=== PATIENT | male | born 1955 | race Caucasian/White ===

== ENCOUNTER 2018-08-25 18:32 | Inpatient (IN) | payer OTHER ==
[~2018-08-25] VITALS: Ht 170.2 cm; Wt 93.0 kg
[~2018-08-25 18:32] MED LIST: ALLOPURINOL 10100 M1 PO; ASPIRIN325 PO; CARDIZEM CD180 MG PO; INDOMETHACIN 2525 MG PO; KEFLEX500 M1 PO; KLOR-CON 1010 MEQ PO; LASIX 20 MG TAB20 MG PO
[2018-08-25 18:42] VITALS: BP 175/89
[2018-08-25 19:09] LABS: ABSOLUTE LYMPHOCYTES 1.2 thou/uL (0.8-5.3); ABSOLUTE NEUTROPHILS 5.8 thou/uL (1.6-8.1); EOSINOPHILS 1.8 %; MPV 8.7 fl. (7.2-11.1); RDW-CV 13.6 % (10.5-14.5)
[2018-08-25 19:10] LABS: ABSOLUTE BASOPHILS 0.1 thou/uL (0.0-0.2); ABSOLUTE EOSINOPHILS 0.1 thou/uL (0.0-0.7); BASOPHILS 0.9 %; HEMATOCRIT 41.8 % (42.0-52.0); HEMOGLOBIN 14.1 gm/dL (14.0-18.0); LYMPHOCYTES 14.1 %; MCH 31.3 pg (26.0-34.0); MCHC 33.8 g/dL (28.0-37.0); MCV 92.7 fL (80.0-100.0); MONOCYTES 12.2 %; NUCLEATED RBCS 0 /100WBC; PLATELET COUNT* 286 thou/uL (150-400); RBC 4.51 mil/uL (4.50-6.00); WBC 8.2 thou/uL (4.0-11.0)
[2018-08-25 19:17] LABS: CALCIUM 8.7 mg/dL (8.5-10.1); CREATININE 1.5 mg/dL (0.6-1.3); POTASSIUM 3.5 mmol/L (3.5-5.1)
[2018-08-25 19:21] LABS: APTT 28.5 Seconds (25.0-31.3); PROTIME 10.1 Seconds (9.20-11.50)
[2018-08-25 19:22] LABS: ALBUMIN 3.7 g/dL (3.4-5.0); TOTAL BILIRUBIN 0.5 mg/dL (<0.1-1.0); TOTAL PROTEIN 8.8 g/dL (6.4-8.2)
[2018-08-25 21:51] VITALS: BP 138/72
[2018-08-25 23:07] VITALS: BP 159/83
--- NOTE | 2018-08-25 23:37 | NUR ---
ARRIVED TO ROOM 316 ALERT AND ORIENTED. ORIENTED TO ROOM AND BED CONTROLS. OPEN WOUNDS NOTED ON RIGHT LOWER LEG DRAINING SMALL AMOUNT OF SEROSANGUINEOUS DRAINAGE. HAS IV PAIN MEDICATION FOR PAIN. IV ANTIBIODICS CURRENTLY INFUSING. WILL CONTINUE TO MONITOR. CALL LIGHT WITHIN REACH.
--- NOTE | 2018-08-26 06:10 | NUR ---
RESTING QUIETLY IN BED ON HOURLY ROUNDS. RIGHT LEG SWOLLEN, RED AND HAS WOUNDS OPEN TO AIR DRAINING SEROSANGUINEOUS DRAINAGE. IV PAIN MEDICATION GIVEN X2 AND HELPFUL. CALL LIGHT WITHIN REACH.
[2018-08-26 10:00] VITALS: BP 127/69
--- NOTE | 2018-08-26 14:54 | NUR ---
WOUND NURSE: PATIENT SEEN FOR WOUND ASSESSMENT TO RLE. PATIENT WITH 3+ PITTING EDEMA, REDDENED, PAINFUL, AND WARM TO TOUCH. MULTIPLE SHALLOW LESIONS INVOLVING THE CIRCUMFERENCE OFTHE LEG AND MEASURING 39 X 18 X .2 CM. DRAINING LARGE AMOUNT OF DARK RED, OPAQUE DRAINAGE. PEDAL PULSES ARE 2+ AND CAPILLARY REFILL IS <3 SECONDS. SKIN IS PINK IN COLOR. CLEANSED WITH SOAP AND WATER, RINSE WITH WATER, THEN PAT DRY. APPLIED XEROFORM GAUZE UNDER ABDS TO WOUNDED AREA, THEN WRAPPED WITH MEDLINE 3 LAYER COMPRESSION WRAP. PATIENT INSTRUCTED ON MEASURES TO PROMOTE HEALING AND PREVENT FURTHER COMPLICATIONS. PLAN IS TO CHANGE DRESSING 3X/WEEK.
[2018-08-26 16:00] VITALS: BP 140/63
--- NOTE | 2018-08-26 16:08 | NUR ---
SW met with pt to complete initial assessment, introduce self, and SW role. Pt lives at home alone. Pt said that he understands that he needs wound care follow up and that he thinks he has someone who would be able to provide rides to wound care clinic. Pt says he does not need any other resources at this time. SW to continue to follow to assist with safe dc planning.
--- NOTE | 2018-08-26 18:32 | NUR ---
PT IS ALERT AND ORIENTED. PT IS ON RA. PT HAS 2+ PULSES ALL EXTREMITIES. 1+ PITTING EDEMA IN THE RIGHT LEG. WOUND CARE NURSE SAW PT AND CLEANED LEGS AND APPLIED XEROFORM UNDER ABD AND WRAPPED IN [address] ALVAREZ WAS ASKED FOR 2% LIDOCAINE CREAM TO PLACE ON LEGS BILAT FOR WOUND CARE. PT HAD ATERIAL DOPPLER ORDERED, RESULTS NEGATIVE. PT HAS REQUESTED FENTANYL EVERY 4 HOURS. CALL LIGHT IN REACH. BED ALARM ON. WILL CONTINUE TO MONITOR.
--- NOTE | 2018-08-26 18:36 | NUR ---
NURSING DOCUMENTATION BY DAVIS Beach RN REVIEWED
[2018-08-27] VITALS: BP 147/77
--- NOTE | 2018-08-27 06:19 | NUR ---
PATIENT SLEPT MOST OF THE NIGHT. IV FLUIDS AND ANTIBIOTICS WERE GIVEN ORDERED. PATIENT WAS GIVEN PAIN MEDICINE TWICE THIS SHIFT. WILL CONTINUE TO MONITOR.
--- NOTE | 2018-08-27 07:53 | CON ---
[address] [address] CONSULTATION Name: ELBERTLALIT Alexandra Room: [address] IN M.R.#: [id number] Admission: 08/25/18 Attend Phys: Reid Suarez MD Discharge: Date of : 59 Report #: [id number] THIS REPORT FOR: //name// CC: FAM physician/PCP Reid Suarez DATE OF SERVICE: 08/26/2018 Infectious Disease Consultation ATTENDING PHYSICIAN: Reid Suarez MD REASON FOR EVALUATION: Right lower extremity skin and soft tissue infection in the setting of an inflammatory eruption, likely has degree of venous insufficiency with dermatitis, perhaps lymphedema as well. HISTORY OF PRESENT ILLNESS: Chart reviewed, patient examined. The patient is a 62-year-old with history of venous insufficiency has ongoing issues with lower extremity edema, inflammatory rashes, he states at least 8 years. His utilizes compression to some extent and increasing pain associated with it. Noted weeping and clearly had significant fevers. Denies any pulmonary or gastrointestinal related complaints, seen through the emergency room, was given tentative diagnosis of cellulitis. He was admitted, placed empirically on antimicrobial therapy with vancomycin and was found not to have significant improvement over the course of the last 24 to 36 hours, is not encephalopathic. ALLERGIES: None. MEDICATIONS: Include vancomycin, fentanyl. PAST MEDICAL HISTORY: Otherwise unremarkable, as noted above, history of gout, new onset atrial fibrillation. SOCIAL HISTORY: Nonsmoker. Occasional ethanol. FAMILY HISTORY: Noncontributory. REVIEW OF SYSTEMS: As above. PHYSICAL EXAMINATION: GENERAL: He appears somewhat chronically ill, undernourished, is generally lucid, moderate distress. VITAL SIGNS: Temperature 97.9, pulse 68, respirations 20, blood pressure 127/69. SKIN: Warm, dry, no rashes. HEENT: [place] [address] CONSULTATION Name: LALIT BOSWELL Room: [address] IN [facility]#: [id number] Admission: 08/25/18 Attend Phys: Reid Suarez MD Discharge: Date of : 59 Report #: [id number] NECK: Supple. LUNGS: Diminished breath sounds. HEART: Regular. I do not appreciate any murmur. ABDOMEN: Obese, soft, nontender. EXTREMITIES: Lower extremities were examined. Venous insufficiency as noted by the dermopathy, does have adequate peripheral distal pulses. Left leg has marked inflammatory changes. There is evidence of weeping. It is quite tender. There is some debris and eschar superficial eschars noted as well. LABORATORY DATA AND X-RAY: Blood cultures are sterile thus far. Lactic acid 1.1. Electrolytes: Sodium 142, potassium 3.5, chloride 104, bicarbonate is 33, anion gap of 5, BUN and creatinine 22 and 1.5, glucose of 102. LFTs unremarkable. Albumin of 3.7, total protein 5.5. Estimated GFR of 48. PT of 10.1, INR 1.0. CBC: White count of 8.2, H and H 14.1 and 41.8, platelets of 286. ASSESSMENT: Right lower extremity inflammatory eruption. It is associated with superficial tissue breakdown with drainage. Discussed with the wound care nurse. Agree with compression. We will add additional coverage. There is quite a bit of an odor, may well be positive or perhaps mixed. Elevation. May at some point need debridement. We would hold off for the moment. We will evaluate on daily basis while here. <ELECTRONICALLY SIGNED> By: Von Houston MD 08/27/18 [id number] Houston MD /nt
[2018-08-27 08:55] VITALS: BP 152/89
[2018-08-27 15:43] VITALS: BP 155/75
[2018-08-27 16:51] VITALS: BP 153/83
--- NOTE | 2018-08-27 18:38 | NUR ---
PATIENT A&OX4, LETHARGIC, ROOM AIR, IV RIGHT AC FLUIDS INFUSSING. UP STAND BY ASSIST, STEADY GAIT. RIGHT LEG OPEN WOUND, ID CONSULT. 3 LAYER WRAP. BLOOD CULTURES REDRAWN THIS AM. FEVER THIS EVENING OF 101.8, TYLENOL GIVE, RELIEF WITH MEDICATION. NO OTHER CONCERNS AT THIS TIME. APPROPRIATE AND COOPORATIVE WITH CARE.
[2018-08-27 23:47] VITALS: BP 125/80
--- NOTE | 2018-08-28 06:28 | NUR ---
PATIENT SLEPT MOST OF THE NIGHT. IV FLUIDS AND ANTIBIOTICS WERE GIVEN ORDERED. PATIENT WAS GIVEN PAIN MEDICINE TWICE WITH SOME RELIEF. COMPRESSION WRAP REMAINS TO RIGHT LOWER LEG. WILL CONTINUE TO MONITOR.
[2018-08-28 07:45] VITALS: BP 136/77
[2018-08-28 16:00] VITALS: BP 156/85
--- NOTE | 2018-08-28 16:23 | NUR ---
WOUND NURSE: PATIENT SEEN TO READDRESS RLE WOUNDS. DRESSING HAD BEEN REMOVED PRIOR TO THIS NURSE ARRIVING TO SEE PATIENT. PATIENT WAS TAKEN TO SHOWER ROOM AND GIVEN A THOROUGH BATH AND WITH EMPHASIS OF CLEANSING WOUNDS WITH SOAP & WATER IN THE SHOWER. ALL WOUNDS PRESENT PARTIAL THICKNESS WOUNDS WITH RED, NONGRANULATING TISSUE IN THE BEDS AND FEW DARK RED THIN SCABS. THE LEG IS ALSO LESS EDEMATOUS AND DECREASED WARMTH. THERE IS A MODERATE TO LARGE AMOUNT OF SEROUSANGUINOUS DRAINAGE. APPLIED XEROFORM GAUZE UNDER ABD'S THEN WRAPPED WITH MEDLINE 3 LAYER COMPRESSION WRAP. THIS WAS TOLERATED WELL BY THE PATIENT. ALSO, RIGHT GREAT TOE FELL OFF WHILE DRESSING THE LEG. ALSO APPLIED LOTION TO INTACT SKIN TOES TO KNEE.
--- NOTE | 2018-08-28 17:51 | NUR ---
PATIENT GIVEN PRN FENTANYL X 2 FOR LEG PAIN. DRESSING TO RIGHT LEG CHANGED PER WOUND CARE. IVF AND SCHED ABX REMAIN. LOW GRADE TEMP 99.9 THIS AFTERNOON, PRN TYLENOL GIVEN. VOIDING LARGE AMOUNTS PER URINAL. UP TO SHOWER THIS EVENING WITH ASSISTANCE.
[2018-08-28 21:00] VITALS: BP 150/80
[2018-08-29 05:00] LABS: HEMATOCRIT 37.3 % (42.0-52.0); HEMOGLOBIN 12.4 gm/dL (14.0-18.0); MCH 30.6 pg (26.0-34.0); MCHC 33.4 g/dL (28.0-37.0); MCV 91.6 fL (80.0-100.0); MPV 9.1 fl. (7.2-11.1); RBC 4.07 mil/uL (4.50-6.00); RDW-CV 13.3 % (10.5-14.5); WBC 15.4 thou/uL (4.0-11.0)
[2018-08-29 08:50] VITALS: BP 143/80
[2018-08-29 12:30] VITALS: BP 127/79
[2018-08-29 16:30] VITALS: BP 152/87
--- NOTE | 2018-08-29 18:54 | NUR ---
PATIENT HAS BEEN A/O X 4 THIS SHIFT. MEDICATED FOR RIGHT LOWER LEG PAIN X 1 WITH EFFECT. PATIENT CONTINUES ON IV ANTIBIOTICS AND FLUIDS. UP WITH ASSIST TO BATHROOM THIS AFTERNOON. PATIENT'S RIGHT LOWER LEG REMAINS WRAPPED AND ELEVATED. PATIENT'S RIGHT HAND ELEVATED ON PILLOWS THIS SHIFT DUE TO SLIGHT SWELLING. PATIENT'S APPETITE FAIR. AFEBRILE THIS SHIFT. HOURLY ROUNDING COMPLETED. CALL LIGHT WITHIN REACH. WILL CONTINUE WITH PLAN OF CARE.
[2018-08-29 20:30] VITALS: BP 136/74
[2018-08-30] VITALS: BP 143/76
[2018-08-30 04:00] VITALS: BP 151/84
--- NOTE | 2018-08-30 06:12 | NUR ---
PT SLEPT ON AND OFF THIS SHIFT. ASSESSMENT DOCUMENTED. MEDS GIVEN PER E-JAN. PT REPORTED A HEADACHE, TYLENOL GIVEN WITH RELIEF. PATIENT ALSO STATED THAT HIS LEFT ELBOW IS HURTING, PAIN MEDS GIVEN PER E-JAN. PT STATES ELBOW PAIN IS FROM WHEN "LIZBETH DRAINED STAPH FROM MY ELBOW, BUT THEY DIDN'T DRAIN ENOUGH". LEFT ARM ELEVATED ON PILLOWS FOR RELIEF. IV PATENT, FLUIDS INFUSING. PT VOIDED PER URINAL. DRESSING ON RIGHT LEG C/D/I. WILL CONTINUE WITH PLAN OF CARE.
[2018-08-30 08:00] VITALS: BP 145/68
[2018-08-30] MEDS ORDERED: PHENERGAN 25 MG25 M1 PO (11:51)
[2018-08-30] MEDS ORDERED: OXYCODONE HCL 55 MG PO (11:51)
--- NOTE | 2018-08-30 14:10 | NUR ---
WOUND NURSE: PATIENT SEEN FOR REWRAP OF RIGHT LOWER EXTREMITY LEG AND DRESSING APPLICATION. STAFF NURSE REMOVED DRESSING AND CLEANSED LEG AND APPLIED LIDOCAINE GEL 2% PRIOR TO THIS NURSE ARRIVING. THIS NURSE APPLIED LOTION TO INTACT SKIN APPLIED XEROFORM GAUZE UNDER ABD, THEN APPLIED MEDLINE 3 LAYER COMPRESSION WRAP. THIS WAS TOLERATED WELL BY THE PATIENT. PATIENT WAS INSTRUCTED ON MEASURES TO CONTINUE TO PROMOTE HEALING AND PREVENT COMPLICATIONS. PATIENT WAS INSTRUCTED ON IMPORTANCE OF ESTABLISHING CARE WITHIN A CLINIC AND TO HAVE DRESSING REMOVED IN ONE WEEK. PATIENT STATED HE UNDERSTOOD. PATIENT WITH 2 SMALL SHALLOW WOUND OPENINGS REMAINING AND WHICH HAVE PARTIAL THICKNESS TISSUE LOSS AND SMALL TO MODERATE AMOUNT OF SEROUSANGUINOUS DRAINAGE.
--- NOTE | 2018-08-30 14:24 | NUR ---
Nutrition: Pt assessed for LOS. Pt wounds/cellulitis on Rt leg. Seen by wound care. Wounds were getting much worse INSPECTOR FABRIC. On vancomycin. Albumin 3.7, BG 102. Wt: 206#. RD will order Donald bid for added nutrition in wound healing. Consider Mild to Low risk.
[2018-08-30] MEDS ORDERED: MINOCIN50 MG PO (14:49)
[2018-08-30] MEDS ORDERED: CIPRO500 MG PO (14:52)
[2018-08-30 15:03] VITALS: BP 145/68
--- NOTE | 2018-08-30 15:19 | NUR ---
RESIDENTIAL LEASING AGENT SPOKE TO THE PATIENT TO DISCUSS DISCHARGE PLANNING NEEDS, AND WOUND CARE AT D/C. PATIENT INFORMS THAT HE REFUSES TO GO BACK TO [place] FOR WOUND CARE F/U. PATIENT ALSO INFORMS THAT HE MAY NEED ASSISTANCE WITH TRANSPORTATION IF HIS FRIEND IS UNABLE TO PROVIDE TRANSPORT. INFORMED PATIENT OF SERVICES AVAILABLE AT [facility]. PATIENT IN AGREEMENT. SPOKE TO NOHEMY WITH [facility], SENT A REFERRAL FOR HOSPITAL F/U AND WOUND CARE SERVICES, AND SETUP AN APPT FOR THE PATIENT FOR SUNDAY (09/02/18 AT 1020AM). SPOKE TO MELISSA WITH WOUND CENTER AND SHE INFORMS THAT THE '[facility] VISIT' HAS NOT BEEN FULLY APPROVED, AND MUST BE APPROVED BY [facility], AND A PHYSICIAN MUST ACCEPT THE PATIENT. CM MUST F/U WITH THE WOUND CENTER ON SUNDAY TO DISCUSS FURTHER. ALSO PROVIDED PATIENT INFO FOR [employer] AND DISCUSSED SERVICES OFFERED. SPOKE TO PATIENT TO DISCUSS THE NEED FOR MEDICATION ASSISTANCE. PATIENT IN AGREEMENT AND COMPLETED PRESCRIPTION ASSISTANCE FORM. INFORMED PATIENT WHERE TO PICK-UP ABT PRESCRIPTIONS. FAXED [employer]HWY PRESCRIPTION ASSISTANCE FORM. PROVIDED RN IN-CHARGE PF PATIENT A CAB VOUCHER IN-CASE THE PATIENT IS UNABLE TO GET A HOLD OF HIS FRIEND. CM WIIL REMAIN AVIALABLE TO ASSIST AND FOLLOW NEEDED. [facility] PHONE:[phone] FAX: [phone]
[2018-08-30] MEDS ORDERED: TYLENOL EXTRA500 MG PO (15:46)
[2018-08-30 15:50] VITALS: BP 146/77
--- NOTE | 2018-08-30 17:11 | NUR ---
PATIENT STATING TO THIS RN THAT HE WAS NEVER TOLD THAT HE WAS BEING DISCHARGED. EXPLAINED TO PATIENT THAT BOTH DR ALVAREZ AND DR HUNTER WERE OK WITH PATIENT BEING DISHCARGED HOME TODAY. PATIETN ASKING TO STAY FOR ONE MORE NIGHT, EDUCATED THAT DR ALVAREZ FELT THERE WAS NOT REASON FOR PATIENT TO STAY AFTER SPEAKING TO PHYSICIAN.
--- NOTE | 2018-08-30 19:56 | NUR ---
PATIENT STATED TO RN THAT HE HAD A FRIEND THAT COULD COME TO PICK HIM UP TO TRANSPORT PATIENT HOME. PATIENT STATED HE DIDN'T HAVE ANY CLOTHES, CLOTHES PROVIDED TO PATIENT SO PATIENT COULD BE DISCHARGED HOME. PATIENT'S IV REMOVED. PATIENT PROVIDED DIRECTIONS TO [address] WHERE PRESCRIPTIONS FOR CIPRO AND MINOCYCLINE WERE FILLED FOR PATIENT. PATIENT HANDED PRESCRIPTIONS FOR PAIN AND NAUSEA MEDS FOR DISCHARGE AND CARENOTES GIVEN TO PATIENT REGARDING NEW MEDICATIONS. PATIENT VERBALIZED UNDERSTANDING ABOUT FOLLOW UP APPOINTMENT ON SUNDAY AT [facility] [place] AND DIRECTIONS PROVIDED TO PATIENT FOR APPOINTMENT. DISCHARGE PHOTOS TAKEN PRIOR TO WOUND DRESSING CHANGE THIS AFTERNOON. PATIENT WAITING FOR RIDE HOME AT 1930. PATIENT'S DRUZE FRIEND (NAN TORRES) CALLED TO ASK ABOUT PATIENT CONDITION AND DISCHARGE. ASKED PATIENT IF NURSE COULD SPEAK TO FRIEND SINCE THERE WAS NOT A DESIGNATED BODY AND FENDER WORKER LISTED, PATIENT STATED NURSE COULD SPEAK WITH NAN. PATIENT'S FRIEND EXPRESSED CONCERN OVER PATIENT'S CURRENT LIVING CONDITIONS AND OVERALL HEALTH. EXPLAINED TO FRIEND THAT PATIENT HAS BEEN REFUSING HOME HEALTH WHEN ASKED EARLIER IN SHIFT WHEN SETTING UP DISCHARGE. PATIENT'S FRIEND CONTINUED TO EXPRESS CONCERNS AND ASKED IF THERE WERE ANY RESOURCES AVAILABLE FOR FRIENDS TO HELP WITH PATIENT. NURSING CARBON FURNACE OPERATOR SPOKE WITH PATIENT'S FRIEND AND EXPLAINED THAT IF THERE WAS CONCERN THAT PATIENT'S LIVING CONDITIONS WERE UNSAFE, THAT ONCE PATIENT WAS DISCHARGED HOME THAT FRIENDS COULD HOTLINE THE PATIENT FOR SAFETY REASONS. PATIENT CALLED OUT AT THIS TIME TO SAY THAT PATIENT'S RIDE WAS WAITING DOWNSTAIRS IN THE ER TO TAKE PATIENT HOME. PATIENT BECOMING IRRITABLE WITH STAFF ON DELAY WITH DISCHARGING TO RIDE. NURSING CARBON FURNACE OPERATOR ASKED PATIENT IF HE DECIDED WHEN HE GOT HOME, IF HE THOUGHT HE NEEDED HOME HEALTH TO CALL SO IT COULD BE SET UP, PATIENT REFUSED ONCE AGAIN. PATIENT THEN PROCEEDED TO TELL NURSING SUPERIVSOR THAT HE DID NOT WANT HIS FRIEND NAN TORRES INVOVLED IN HIS CARE ANYMORE. PATIENT THEN ESCORTED DOWN TO THE ER EXIT WITH NURSING STAFF. PATIENT DISCHARGED TO HOME WITH ALL BELONGINGS.
== END 2018-08-30 20:15 | disposition home or self-care (01) | DRG 872 ==
LOC: M.ERS 18:32 → M.3W 21:11 → M.TBA-ER 21:11 → M.3W 22:32
PROVIDERS: Internal Medicine; Nurse Practitioner Family
DX: A41.50 Gram-negative sepsis, unspecified (principal); L03.115 Cellulitis of right lower limb; M10.9 Gout, unspecified; I48.91 Unspecified atrial fibrillation; R21 Rash and other nonspecific skin eruption; Z85.46 Personal history of malignant neoplasm of prostate; Z79.899 Other long term (current) drug therapy